=== PATIENT | male | born 1950 | race Caucasian/White ===

== ENCOUNTER 2018-11-29 13:27 | Day surgery (SDC) | payer BC ==
[~2018-11-29] VITALS: Ht 172.7 cm; Wt 54.2 kg
[2018-11-29 14:17] VITALS: Ht 172.7 cm; Wt 54.2 kg
[2018-11-29] MEDS ORDERED: b12 PO (14:25)
[2018-11-29] MEDS ORDERED: vit D PO (14:25)
[2018-11-29] MEDS ORDERED: multivitamin PO (14:25)
[2018-11-29] MEDS ORDERED: folic acid PO (14:25)
[2018-11-29] MEDS ORDERED: fish oil PO (14:25)
[2018-11-29] MEDS ORDERED: ferrous sulfate PO (14:25)
[2018-11-29 15:07] VITALS: BP 122/67; PULSE 126; RESP 20
--- NOTE | 2018-11-29 15:27 | PREAC ---
Date/Time of Note Date/Time of Note DATE: 11/29/18 TIME: 15:21 Anesthesia Eval and Record Evaluation Time Pre-Procedure Interview DATE: 11/29/18 TIME: 15:21 Age 68 Sex male NPO: 8 hrs Preoperative diagnosis anemia Planned procedure colonoscopy / EGD Past Medical History Past Medical History: Includes Heme: Anemia Surgery & Anesthesia Issues No known issue Meds Anticoagulation: No Beta Khushbu within 24 hr: Yes Reason Beta Khushbu not given: Pt. not on B-Khushbu Reported Medications [vit D] No Conflict Check, PO DAILY 11/29/18 [fish oil] No Conflict Check, PO DAILY 11/29/18 [multivitamin] No Conflict Check, PO DAILY 11/29/18 [b12] No Conflict Check, PO DAILY 11/29/18 [folic acid] No Conflict Check, PO DAILY 11/29/18 [ferrous sulfate] No Conflict Check, PO DAILY 11/29/18 Meds reviewed: Yes Allergies Coded Allergies: No Known Allergy (Unverified , 11/29/18) Allergies Reviewed: Yes Labs/Studies Labs Reviewed: Reviewed by anesthesiologist test: N/A Pre-procedure Exam Last vitals Vital Signs Date Temp Pulse Resp B/P (MAP) Pulse Ox O2 O2 Flow FiO2 Time Delivery Rate 11/29/18 99.3 126 20 122/67 96 Room Air 15:07 (85) Airway: Adequate mouth opening Mallampati: Mallampati II Teeth: Normal Lung: Normal Heart: Normal ASA Physical Status ASA physical status: 2 Emergency: None Planned Anesthetic General/MAC: MAC Pre-operative Attestations Prior to commencing anesthesia and surgery, the patient was re-evaluated, there was verification of: *The patient's identity *The results of appropriate recent lab work and preoperative vital signs *The above evaluation not changing prior to induction *Anesthetic plan, risk benefits, alternative and complications discussed with patient/family; questions answered; patient/family understands, accepts and wishes to proceed. JOVAN VILLAGRAN Nov 29, 2018 15:27
[2018-11-29] MEDS ORDERED: PROPOFOL 40 ML ONE (15:29)
[2018-11-29] MEDS ORDERED: LIDOCAINE 100 MG SYRINGE ONE (15:29)
[2018-11-29] MEDS ORDERED: ESMOLOL 10 ML ONE (15:30)
[2018-11-29] MEDS ORDERED: ONDANSETRON 4 MG INJ IV PRN (15:30)
[2018-11-29] MEDS ORDERED: LABETALOL HCL 20MG INJ IV PRN (15:30)
[2018-11-29] MEDS ORDERED: hydrALAzine 20 MG INJ IV PRN (15:30)
[2018-11-29] MEDS ORDERED: METOCLOPRAMIDE 10 MG INJ IV PRN (15:30)
[2018-11-29 16:10] VITALS: BP 96/54; PULSE 114; RESP 19
--- NOTE | 2018-11-29 16:10 | PAC ---
Date/Time of Note Date/Time of Note DATE: 11/29/18 TIME: 16:10 Post-Anesthesia Notes Post-Anesthesia Note Last documented vital signs Vital Signs Date Temp Pulse Resp B/P (MAP) Pulse Ox O2 O2 Flow FiO2 Time Delivery Rate 11/29/18 99.3 126 20 122/67 96 Room Air 15:07 (85) Activity: WNL Respiratory function: WNL Cardiovascular function: WNL Mental status: Baseline Pain reasonably controlled: Yes Hydration appropriate: Yes Nausea/Vomiting absent: Yes JOVAN VILLAGRAN Nov 29, 2018 16:10
[2018-11-29] MEDS ORDERED: ETOMIDATE 20 MG INJ ONE (16:11)
[2018-11-29] MEDS ORDERED: PHENYLephrine (100 MCG/ML) 5ML SYG ONE (16:11)
[2018-11-29 16:15] VITALS: BP 98/62; PULSE 110; RESP 19
[2018-11-29 16:33] VITALS: BP 109/67; PULSE 114; RESP 20
== END 2018-11-29 17:38 | disposition home or self-care (01) ==
LOC: GIL 13:27
PROVIDERS: ATTEND Internal Medicine Gastroenterology
DX: K64.8 Other hemorrhoids (principal); D50.9 Iron deficiency anemia, unspecified; K21.0 Gastro-esophageal reflux disease with esophagitis; K29.50 Unspecified chronic gastritis without bleeding
CPT/HCPCS: 43239; 45378; 88305; 88312; J2001; J2370